=== PATIENT | female | born 1955 | race African-American/Black ===

== ENCOUNTER 2021-11-26 06:27 | Day surgery (SDC) | payer BC, OTHER ==
--- NOTE | 2021-10-16 11:34 | RAD REPORT ---
EXAM DESCRIPTION: RAD - Chest Pa And Lat (2 Views) - 10/16/2021 11:27 am CLINICAL HISTORY: pre op for surgery Chest pain. COMPARISON: No comparisons FINDINGS: The lungs are clear. The heart is upper limit of normal in size. No displaced fractures. R ight axillary dissection clips. IMPRESSION: No acute or concerning finding suspected.
[2021-10-16 11:44] LABS: Absolute Lymphocytes (CBC) 3.7 K/uL (0.7-4.9); Hematocrit 38.6 % (36.0-45.0); Lymphocytes % 35.6 % (15.3-44.8); MCV 85.7 fL (80-100); MPV 8.9 fL (7.6-11.3); RBC Red Blood Cell Count 4.51 M/uL (3.86-4.86)
[2021-10-16 11:58] LABS: Potassium 3.9 mmol/L (3.5-5.1)
[2021-10-16 12:24] LABS: SARS-CoV-2 Antigen Rapid Res Negative (Negative)
--- NOTE | 2021-10-19 13:56 | EKG ---
Test Date: 2021-10-16 Test Time: 11:10:15 Clinical Product Manager: CURTIS MEASUREMENT RESULTS: Intervals: Rate: 65 HI: 152 QRSD: 86 QT: 384 QTc: 399 Tate: P: 68 HI: 152 QRS: 40 T: 48 INTERPRETIVE STATEMENTS: Normal sinus rhythm Nonspecific T wave abnormality Abnormal ECG Compared to ECG 06/24/1993 06:13:00 T-wave abnormality now present Electronically Signed On 10-19-21 13:49:41 CDT by Nael Sen
[2021-11-26] MEDS ORDERED: NA CHLORIDE 0.9% 1,000 ML ONE ×2 (07:21→09:26)
[2021-11-26] MEDS ORDERED: CEFAZOLIN SODIUM 1 GM/VIAL ONE (07:21)
[2021-11-26] MEDS ORDERED: FENTANYL CITR 100 MCG/2 ML ONE (07:24)
[2021-11-26] MEDS ORDERED: propofoL 200 MG/20 ML VIAL IV ONE (07:24)
[2021-11-26] MEDS ORDERED: dexAMETHasone 10 MG/ML VIAL ONE ×2 (07:24→08:59)
[2021-11-26] MEDS ORDERED: MIDAZOLAM HCL 2 MG/2 ML INJ ONE (07:24)
[2021-11-26] MEDS ORDERED: ONDANSETRON 4 MG/2 ML VIAL ONE (07:24)
[2021-11-26] MEDS ORDERED: KETOROLAC 30 MG/ML INJ ONE (07:25)
[2021-11-26] MEDS ORDERED: LIDOCAINE 2% MPF 5 ML VIAL ONE (07:25)
[2021-11-26 07:26] LABS: Absolute Lymphocytes (CBC) 2.5 K/uL (0.7-4.9); MCV 86.3 fL (80-100); MPV 9.3 fL (7.6-11.3)
[2021-11-26 07:31] LABS: Potassium 4.1 mmol/L (3.5-5.1)
[2021-11-26] MEDS ORDERED: ROCURONIUM 50 MG/5 ML VIAL IV ONE (07:32)
[2021-11-26] MEDS ORDERED: BUPIVACAINE 0.5% PF 10 ML VIAL ONE ×3 (07:36→09:13)
[2021-11-26] MEDS ORDERED: CELECOXIB 100 MG CAPSULE ONE (07:37)
[2021-11-26] MEDS ORDERED: ACETAMINOPHEN 500 MG TAB ONE (07:38)
[2021-11-26] MEDS ORDERED: NS 0.9% VIAL 10 ML ONE ×2 (08:11→08:54)
[2021-11-26] MEDS ORDERED: Phenylephrine HCl 10 MG/ML 1 ML VIAL ONE (08:53)
[2021-11-26] MEDS ORDERED: EPHEDRINE SULF 50 MG/ML VIAL ONE (08:54)
[2021-11-26] MEDS ORDERED: BUPIVACAINE 0.25% PF 10 ML VIAL ONE (09:00)
[2021-11-26] MEDS ORDERED: EPINEPHRINE/PF 1 MG/ML AMP ONE (09:00)
[2021-11-26] MEDS ORDERED: Mastisol Adhesive Liq ONE (09:14)
[2021-11-26] MEDS ORDERED: HYDROCODONE/APAP 7.5/325 MG TAB PO PRN (09:35)
--- NOTE | 2021-11-26 09:44 | P.OP ---
Date of Service: 11/26/21 Preop diagnosis: Ventral hernia x2 Postop diagnosis: Incarcerated ventral hernia x2 with extensive adhesions Procedure performed: Laparoscopic repair of incarcerated ventral hernia x2, lysis of adhesions Surgeon: Bryan Dawson MD Slide Developer: Sonali WOOD Estimated blood loss: Minimal Specimen: Hernia sac and contents Findings: As above Anesthesia: General Complications: None Drains: None Fluids and blood products: Nonapplicable Disposition: Recovery room Operative note: Patient brought to the OR and placed in the supine position. General anesthesia begun. Patient prepped and draped in the usual sterile fashion. Marcaine 0.5% infiltrated locally. 15 blade used to make a 1 cm right upper quadrant incision. Subcutaneous tissue divided and fascia identified and divided. #1 Vicryl stay suture placed. Peritoneal cavity entered with sharp and blunt dissection. 12 mm trocar placed into the peritoneal cavity under direct vision. Pneumoperitoneum established. 5 mm trocar placed in the right lower quadrant. Laparoscopy revealed extensive adhesions on the left side of the abdomen as well as 2 fascial defects close to each other with incarceration of omentum. LigaSure utilized to lyse all the adhesions and remove the omentum from the hernia sac as much as possible. Bleeding controlled with the LigaSure. This took approximately 20 minutes. And then a 4 cm incision made over the hernia itself. Subcutaneous tissue divided. Hernia sac identified and dissected free from the fascial edges. Hernia sac and omental contents sent to pathology as specimen. And then [id number] interrupted #1 PDS suture was used to close the fascial defect. Then pneumoperitoneum reestablished and a Bard mesh balloon system deployed inside the peritoneal cavity under standard guidance. Sorbitack used to secure the mesh to the peritoneal surface. There was complete coverage of the hernia site, with at least 3 cm borders in all direction. Then the balloon system was removed. All components were present. Laparoscopy revealed no evidence of bleeding or bowel injury. Subsequently all trochars removed under direct vision. Stay sutures tied to each other to reapproximate the fascial defect in the right upper quadrant wound. Subcutaneous wounds irrigated bleeding controlled with cautery. 2-0 chromic used to re-approximate subcutaneous tissue and 3-0 chromic used to close skin. Sterile dressing applied. Patient had a TAP procedure for postop pain control as well by the anesthesia service. And then the patient was awakened and taken to recovery room in good general condition. CC: Dr. Clemente's's office
[2021-11-26] MEDS ORDERED: DIPHENHYDRAMINE 50 MG/ML VIAL ONE (10:23)
[2021-11-26] MEDS ORDERED: LIDOCAINE 2% INJ, MPF 2 ML 0 ML ONE (10:45)
[2021-11-26 10:51] VITALS: O2SAT 99
[2021-11-26] MEDS ORDERED: LIDOCAINE 4% TOP SOLUTION ONE (10:53)
[2021-11-26] MEDS ORDERED: GUAIFENESIN/CODEINE 5ML UCUP PO ONE (12:00)
[2021-11-26 12:49] VITALS: BP 161/96; TEMP 96.3
== END 2021-11-26 12:40 | disposition home or self-care (01) ==
LOC: OR 06:27
PROVIDERS: ATTEND Surgery
PROC: 0DNU4ZZ Release Omentum, Percutaneous Endoscopic Approach (ICD-10-PCS; 2021-11-26)
PROC: 0WUF4JZ Supplement Abdominal Wall with Synthetic Substitute, Percutaneous Endoscopic Approach (ICD-10-PCS; principal; 2021-11-26 07:30)
DX: K43.6 Other and unspecified ventral hernia with obstruction, without gangrene (principal); I10 Essential (primary) hypertension; E11.9 Type 2 diabetes mellitus without complications; Z20.822 Contact with and (suspected) exposure to COVID-19
CPT/HCPCS: 93005; 85025 ×2; 80048 ×2; 36415 ×2; 82947 ×2; 88302; 71046; 87811; 49653; 49329; J2704; J0171; J1200; J2370; J2250; J3010; J1100 ×2; J7030 ×2; J2405; J0690